=== PATIENT | male | born 1955 | race Caucasian/White ===

== ENCOUNTER 2018-05-01 09:05 | Day surgery (SDC) | payer MEDICARE, OTHER ==
[~2018-05-01] VITALS: Ht 161.3 cm; Wt 104.7 kg
[~2018-05-01 09:05] MED LIST: ASPIRIN 32325 MG/TAB PO; AVINZA PO; AVINZA120 MG PO; CARDI-OMEGA1000 MG PO; CO ENZYME Q-1050 MG; COLON HERBAL CL1 CAP PO; ELAVIL100 MG PO; FOLIC ACID 40400 MCG PO; HCTZ 25MG TAB25 MG PO; LORTAB 10/500 51 TAB; MSIR15 MG PO; MULTIPLE VITAMI1 CAP PO; NEURONTIN300 MG/CAP PO; PRINIVIL10 MG PO; RITE AID NATU200 MCG PO; RYBIX ODT50 MG PO; SAVELLA50 MG PO; STOOL SOFTENER250 M1 PO; SUPER EPA 2002000 MG; VITAMIN D2000 I1 PO; XANAX 0.5MG0.5 MG PO; XANAX PO; ZOCOR 20MG20 MG PO; ZYLOPRIM 300MG300 MG PO; [UNRECOGNIZED DRUG - REMARK]
[2018-05-01 10:16] VITALS: BP 119/67; PULSE 62; TEMP 98.1
[2018-05-01] MEDS ORDERED: ASPI325T6 PO (10:34)
[2018-05-01] MEDS ORDERED: AVINZA60 MG PO (10:44)
[2018-05-01] MEDS ORDERED: MS CONTIN 660 MG/TAB PO (10:46)
[2018-05-01] MEDS ORDERED: LIORESAL 1010 MG/TAB PO (10:48)
[2018-05-01] MEDS ORDERED: DAZIDOX10 MG PO (10:49)
[2018-05-01] MEDS ORDERED: SAVELLA50 MG PO (10:52)
[2018-05-01] MEDS ORDERED: SENOKOT S 50 MG1 TAB PO (10:54)
[2018-05-01] MEDS ORDERED: CELEBREX 200MG200 MG PO (10:55)
[2018-05-01] MEDS ORDERED: PREVACID 30MG30 M1 PO (10:56)
[2018-05-01] MEDS ORDERED: MELATONIN5 M1 SL (10:58)
[2018-05-01] MEDS ORDERED: SUDAFED 12 HOU120 MG PO (10:59)
[2018-05-01] MEDS ORDERED: FERROUS SU325 MG/TAB PO (11:04)
[2018-05-01] MEDS ORDERED: B-121000 MCG PO (11:05)
[2018-05-01] MEDS ORDERED: FLEXERIL 1010 MG/TAB PO (11:09)
[2018-05-01 13:55] VITALS: BP 101/64; PULSE 63; TEMP 97.8
[2018-05-01 14:10] VITALS: BP 104/50; PULSE 109
== END 2018-05-01 15:15 | disposition home or self-care (01) ==
LOC: SDCO 09:05
DX: K80.10 Calculus of gallbladder with chronic cholecystitis without obstruction (principal); I10 Essential (primary) hypertension; G47.33 Obstructive sleep apnea (adult) (pediatric); K44.9 Diaphragmatic hernia without obstruction or gangrene; M19.90 Unspecified osteoarthritis, unspecified site; G89.29 Other chronic pain; Z88.1 Allergy status to other antibiotic agents; Z96.653 Presence of artificial knee joint, bilateral
CPT/HCPCS: J1100; J1170; J2270; J2370; J2405; J2704; J3010; J7050; J7120

== ENCOUNTER → 2019-10-12 | Outpatient (CLI) | payer MEDICARE, OTHER ==
[~2019-10-12] MED LIST changes: +ASPI325T6 PO; +AVINZA60 MG PO; +B-121000 MCG PO; +CELEBREX 200MG200 MG PO; +DAZIDOX10 MG PO; +FERROUS SU325 MG/TAB PO; +FLEXERIL 1010 MG/TAB PO; +LIORESAL 1010 MG/TAB PO; +MELATONIN5 M1 SL; +MS CONTIN 660 MG/TAB PO; +PREVACID 30MG30 M1 PO; +SENOKOT S 50 MG1 TAB PO; +SUDAFED 12 HOU120 MG PO
== END ==
LOC: COL.RAD 08:49
DX: M25.522 Pain in left elbow (principal)
CPT/HCPCS: J3301; Q9967

== ENCOUNTER → 2019-11-25 | Outpatient (CLI) | payer MEDICARE, OTHER | LOC: COL.RAD 08:00 | DX: M25.522 Pain in left elbow (principal) | CPT/HCPCS: J3301; Q9967 ==

== ENCOUNTER 2022-08-24 08:28 | Day surgery (SDC) | payer MEDICARE, OTHER ==
[~2022-08-24] VITALS: Ht 157.5 cm; Wt 91.9 kg
[2022-08-24] MEDS ORDERED: PRINIVIL20 MG PO (08:53)
[2022-08-24] MEDS ORDERED: LIPITOR20 MG PO (08:53)
[2022-08-24] MEDS ORDERED: HCTZ 25MG TAB25 MG PO (08:53)
[2022-08-24] MEDS ORDERED: MS CONTIN 660 MG/TAB PO (08:54)
[2022-08-24] MEDS ORDERED: SAVELLA50 MG PO (08:54)
[2022-08-24] MEDS ORDERED: NEURONTIN300 MG/CAP PO (08:55)
[2022-08-24] MEDS ORDERED: ROXICODONE15 MG PO (08:55)
[2022-08-24] MEDS ORDERED: PREVACID 30MG30 M1 PO (08:56)
[2022-08-24] MEDS ORDERED: XANAX 0.5MG0.5 MG PO (08:56)
[2022-08-24] MEDS ORDERED: CELEBREX 200MG200 MG PO (08:56)
[2022-08-24] MEDS ORDERED: SELENIUM200 MC5 PO (08:57)
[2022-08-24] MEDS ORDERED: EPA FISH OIL1 SGL PO (08:57)
[2022-08-24] MEDS ORDERED: MASON NATURAL2000 IU PO (08:57)
[2022-08-24] MEDS ORDERED: FERRO-TIME325 MG PO (08:58)
[2022-08-24] MEDS ORDERED: COENZYME Q-10100 M1 PO (08:58)
[2022-08-24] MEDS ORDERED: FLOMAX 0.40.4 MG/CAP PO (08:59)
[2022-08-24] MEDS ORDERED: SENEXON-S 50-81 EACH PO (08:59)
[2022-08-24] MEDS ORDERED: FLEXERIL5 MG PO (08:59)
[2022-08-24] MEDS ORDERED: PROSCAR 5MG5 MG PO (08:59)
[2022-08-24] MEDS ORDERED: LASIX 20MG TABL20 MG PO (09:00)
[2022-08-24 09:01] VITALS: BP 124/62; PULSE 72; TEMP 97.8
[2022-08-24 09:55] VITALS: BP 84/47; PULSE 62; TEMP 97.4
[2022-08-24 10:10] VITALS: BP 98/67; PULSE 60
--- NOTE | 2022-08-24 10:24 | NUR ---
0955 - PT arrives from procedure drowsy but oriented, and was assisted 2:1 w/ stand and pivot to chair. PT assisted w/ repositioning. Monitors and warm blankets applied. Verbal room report obtained. PT denies pain/nasuea and was provided snack and drink per request. Visitor remains present. PT oriented to room and call jim within reach if needed, and non-slip socks are on. Will monitor per intervals. Visitor remains present. 1010 - VSS. PT has finished snack and drink, is tolerating well. Call jim within reach. Awaiting DR to speak w/ DR. PT continues to deny pain/nasuea. IVF continue.
[2022-08-24 10:25] VITALS: BP 99/54; PULSE 61
[2022-08-24 10:40] VITALS: BP 100/54; PULSE 61
--- NOTE | 2022-08-24 10:45 | NUR ---
1040 - DC PT education consulted w/ DR by RN.
--- NOTE | 2022-08-24 10:58 | NUR ---
1025 - VSS. PT has finished snack and drink. Call jim within reach. 1030 - DR is speaking w/ PT. 1040 - VSS. IV and monitors discontinued. Catheter tip intact and pressure bandage applied. NO redness or swelling noted. DC instructions and educational material reviewed w/ PT who verbalized understanding and signed. Questions answered to PT satisfaction. PT then refused RN assistance changing into personal clothes; call jim within reach if needed. Legs lowered and blanekts removed. Visitor present. 1100 - Visitor left to bring car to PT entrence. PT ambulates to bathroom w/ cane.
--- NOTE | 2022-08-24 11:10 | NUR ---
1105 - PT dismissed from endo via wheelchair to the PT entrence by Fariba MOREJON. PT has DC packet and personal belongings, and was transferred into the care of his , who is driving private car.
== END 2022-08-24 11:10 | disposition home or self-care (01) ==
LOC: SDCO 08:28
DX: K29.60 Other gastritis without bleeding (principal); K22.4 Dyskinesia of esophagus; Z98.84 Bariatric surgery status; Z87.11 Personal history of peptic ulcer disease
CPT/HCPCS: J2704; J7120